=== PATIENT | female | born 1935 | race Asian ===

== ENCOUNTER 2017-07-03 17:09 | Emergency (ER) | payer SELFPAY, OTHER, MEDICARE | END 2017-07-03 18:53 | disposition left against medical advice (07) | LOC: E/R 17:09 | DX: Z53.21 Procedure and treatment not carried out due to patient leaving prior to being seen by health care provider (principal) ==

== ENCOUNTER 2017-07-03 20:05 | Inpatient (IN) | payer MEDICARE, OTHER, MEDICAID ==
[2017-07-03] MEDS: SOD CHLORIDE 0.9% 500 ML IV (20:36)
[2017-07-03] MEDS ORDERED: DEXTROSE 50% 50 ML SYRINGE (20:38)
[2017-07-03 20:42] LABS: ADD MAN DIFF? NO
[2017-07-03 20:44] LABS: BASOPHILS % 0.3 % (0.0-2.0); EOSINOPHILS # 0.1 10^3/ul (0.0-0.5); EOSINOPHILS % 0.5 % (0.0-7.0); HEMOGLOBIN 10.9 g/dl (12.0-16.0); LYMPHOCYTES # 3.3 10^3/ul (0.8-2.9); LYMPHOCYTES % 23.1 % (15.0-51.0); MEAN CORPUSCULAR HEMOGLOBIN 32.1 pg (29.0-33.0); MEAN CORPUSCULAR VOLUME 97.1 fl (82.0-101.0); MONOCYTE # 0.6 10^3/ul (0.3-0.9); MONOCYTES % 4.2 % (0.0-11.0); NEUTROPHIL # 10.1 10^3/ul (1.6-7.5); NEUTROPHILS % 70.7 % (39.0-77.0); PLATELET COUNT 306 10^3/UL (140-415); RED CELL DISTRIBUTION WIDTH 12.5 % (11.5-14.5)
[2017-07-03 20:44] LABS: WHITE BLOOD COUNT 14.3 10^3/ul (4.8-10.8)
[2017-07-03 21:02] LABS: PROTIME 18.4 Sec (11.9-14.9); PT RATIO 1.4
[2017-07-03 21:03] LABS: ANION GAP 18 (8-16); BLOOD UREA NITROGEN 24 mg/dl (7-20); CALCIUM 9.9 mg/dl (8.4-10.2); CARBON DIOXIDE 26 mmol/L (21-31); CHLORIDE 103 mmol/L (97-110); GLUCOSE 68 mg/dl (70-220); POTASSIUM 4.8 mmol/L (3.5-5.1); SODIUM 142 mmol/L (135-144)
[2017-07-03] MEDS: DEXTROSE 50% 50 ML SYRINGE IV (21:10)
[2017-07-03 21:16] LABS: B-TYPE NATRIURETIC PEPTIDE 713 PG/ML (0-450)
[2017-07-03 21:18] LABS: TROPONIN-I < 0.012 ng/ml (0.00-0.12)
[2017-07-03] MEDS ORDERED: ACETAMINOPHEN 325 MG TAB PO (22:30)
[2017-07-03] MEDS ORDERED: ONDANSETRON 4 MG INJ IV (22:30)
[2017-07-03 22:39] LABS: ALANINE AMINOTRANSFERASE 23 IU/L (13-69); ALBUMIN 4.1 g/dl (3.3-4.9); ALKALINE PHOSPHATASE 45 IU/L (42-121); ASPARTATE AMINO TRANSFERASE 26 IU/L (15-46); TOTAL PROTEIN 7.1 g/dl (6.1-8.1)
[2017-07-04] MEDS ORDERED: GLUCAGON 1 MG INJ IM (11:30)
[2017-07-04] MEDS ORDERED: GLUCOSE GEL 15 GRAM TUBE BUCCAL (11:30)
[2017-07-04] MEDS ORDERED: GLUCOSE GEL 15 GRAM TUBE PO ×2 (11:30)
[2017-07-04] MEDS ORDERED: DEXTROSE 50% 50 ML SYRINGE IV ×2 (11:30)
[2017-07-04 11:50] LABS: ADD MAN DIFF? NO
[2017-07-04] MEDS: INSULIN ASPART [NOVOLOG] 3 ML PEN SC ×3 (11:50→21:00)
[2017-07-04 11:52] LABS: BASOPHIL # 0.1 10^3/ul (0.0-0.1); BASOPHILS % 0.4 % (0.0-2.0); EOSINOPHILS # 0.1 10^3/ul (0.0-0.5); EOSINOPHILS % 0.9 % (0.0-7.0); HEMATOCRIT 32.8 % (37.0-47.0); HEMOGLOBIN 10.9 g/dl (12.0-16.0); LYMPHOCYTES # 4.2 10^3/ul (0.8-2.9); LYMPHOCYTES % 33.2 % (15.0-51.0); MEAN CORPUSCULAR HEMOGLOBIN 32.2 pg (29.0-33.0); MEAN CORPUSCULAR HGB CONC 33.2 g/dl (32.0-37.0); MEAN CORPUSCULAR VOLUME 96.8 fl (82.0-101.0); MEAN PLATELET VOLUME 10.4 fl (7.4-10.4); MONOCYTE # 0.6 10^3/ul (0.3-0.9); MONOCYTES % 4.4 % (0.0-11.0); NEUTROPHIL # 7.7 10^3/ul (1.6-7.5); NEUTROPHILS % 60.2 % (39.0-77.0); PLATELET COUNT 319 10^3/UL (140-415); RED BLOOD COUNT 3.39 10^6/ul (4.20-5.40); RED CELL DISTRIBUTION WIDTH 12.6 % (11.5-14.5)
[2017-07-04 11:52] LABS: WHITE BLOOD COUNT 12.8 10^3/ul (4.8-10.8)
[2017-07-04 12:20] LABS: ALANINE AMINOTRANSFERASE 25 IU/L (13-69); ALBUMIN 3.9 g/dl (3.3-4.9); ALKALINE PHOSPHATASE 42 IU/L (42-121); ANION GAP 15 (8-16); ASPARTATE AMINO TRANSFERASE 22 IU/L (15-46); BILIRUBIN,INDIRECT 0.3 mg/dl (0-1.1); BILIRUBIN,TOTAL 0.3 mg/dl (0.2-1.3); BLOOD UREA NITROGEN 16 mg/dl (7-20); CALCIUM 9.5 mg/dl (8.4-10.2); CARBON DIOXIDE 26 mmol/L (21-31); CHLORIDE 108 mmol/L (97-110); CHOL/HDL RATIO 2.5 RATIO; CHOLESTEROL 108 mg/dl (100-200); CREATININE 1.04 mg/dl (0.44-1.00); HDL CHOLESTEROL 42 mg/dl (33-92); LDL CHOLESTEROL,CALCULATED 36 mg/dl; LIPASE 201 U/L (23-300); POTASSIUM 4.4 mmol/L (3.5-5.1); SODIUM 145 mmol/L (135-144); TOTAL PROTEIN 6.9 g/dl (6.1-8.1); TRIGLYCERIDES 151 mg/dl (0-149)
[2017-07-04] MEDS: INFLUENZA VIRUS VACCINE 0.5 ML SYG IM* (13:34)
[2017-07-04 15:13] LABS: ADD UMIC YES; UR ASCORBIC ACID NEGATIVE (NEGATIVE); UR BILIRUBIN (Dip) NEGATIVE (NEGATIVE); UR BLOOD (Dip) NEGATIVE (NEGATIVE); UR CLARITY SLIGHTLY CLOUDY (CLEAR); UR COLOR YELLOW (YELLOW); UR GLUCOSE (Dip) NEGATIVE (NEGATIVE); UR KETONES (Dip) NEGATIVE (NEGATIVE); UR LEUKOCYTE ESTERASE (Dip) TRACE Leu/ul (NEGATIVE); UR NITRITE (Dip) NEGATIVE (NEGATIVE); UR RBC 2 /HPF (0-5); UR SPECIFIC GRAVITY (Dip) 1.011 (1.003-1.030); UR TOTAL PROTEIN (Dip) NEGATIVE (NEGATIVE); UR UROBILINOGEN (Dip) NEGATIVE (NEGATIVE); UR WBC 29 /HPF (0-5)
[2017-07-05] MEDS: INSULIN ASPART [NOVOLOG] 3 ML PEN SC ×4 (08:59→21:34)
[2017-07-05 09:27] LABS: ADD MAN DIFF? NO
[2017-07-05 09:34] LABS: BASOPHIL # 0.1 10^3/ul (0.0-0.1); BASOPHILS % 0.4 % (0.0-2.0); EOSINOPHILS # 0.1 10^3/ul (0.0-0.5); EOSINOPHILS % 1.1 % (0.0-7.0); LYMPHOCYTES # 3.3 10^3/ul (0.8-2.9); LYMPHOCYTES % 29.4 % (15.0-51.0); MEAN CORPUSCULAR HEMOGLOBIN 32.2 pg (29.0-33.0); MEAN CORPUSCULAR HGB CONC 33.3 g/dl (32.0-37.0); MEAN CORPUSCULAR VOLUME 96.5 fl (82.0-101.0); MONOCYTE # 0.7 10^3/ul (0.3-0.9); NEUTROPHILS % 62.5 % (39.0-77.0); PLATELET COUNT 302 10^3/UL (140-415); RED BLOOD COUNT 3.73 10^6/ul (4.20-5.40); RED CELL DISTRIBUTION WIDTH 12.4 % (11.5-14.5)
[2017-07-05 09:34] LABS: WHITE BLOOD COUNT 11.3 10^3/ul (4.8-10.8)
[2017-07-05 10:12] LABS: ANION GAP 17 (8-16); BLOOD UREA NITROGEN 18 mg/dl (7-20); CALCIUM 9.4 mg/dl (8.4-10.2); CARBON DIOXIDE 28 mmol/L (21-31); CHLORIDE 106 mmol/L (97-110); CREATININE 1.19 mg/dl (0.44-1.00); GLUCOSE 220 mg/dl (70-220); POTASSIUM 4.9 mmol/L (3.5-5.1); SODIUM 146 mmol/L (135-144)
[2017-07-06] MEDS: INSULIN ASPART [NOVOLOG] 3 ML PEN SC ×5 (07:55→20:15)
[2017-07-06] MEDS: ACETAMINOPHEN 325 MG TAB PO (12:58)
[2017-07-06 13:44] LABS: GLUCOSE 39 mg/dl (70-220)
[2017-07-06] MEDS: ENOXAPARIN 100 MG/ML SYG SC (20:15)
[2017-07-07 07:42] LABS: ADD MAN DIFF? NO
[2017-07-07 07:48] LABS: WHITE BLOOD COUNT 10.1 10^3/ul (4.8-10.8)
[2017-07-07 07:48] LABS: BASOPHIL # 0.1 10^3/ul (0.0-0.1); BASOPHILS % 0.6 % (0.0-2.0); EOSINOPHILS # 0.3 10^3/ul (0.0-0.5); EOSINOPHILS % 2.5 % (0.0-7.0); HEMOGLOBIN 11.2 g/dl (12.0-16.0); LYMPHOCYTES % 39.4 % (15.0-51.0); MEAN CORPUSCULAR HEMOGLOBIN 31.7 pg (29.0-33.0); MEAN CORPUSCULAR HGB CONC 33.9 g/dl (32.0-37.0); MEAN CORPUSCULAR VOLUME 93.5 fl (82.0-101.0); MEAN PLATELET VOLUME 11.4 fl (7.4-10.4); MONOCYTE # 0.8 10^3/ul (0.3-0.9); MONOCYTES % 7.5 % (0.0-11.0); NEUTROPHILS % 49.3 % (39.0-77.0); PLATELET COUNT 230 10^3/UL (140-415); RED BLOOD COUNT 3.53 10^6/ul (4.20-5.40); RED CELL DISTRIBUTION WIDTH 12.4 % (11.5-14.5)
[2017-07-07] MEDS: INSULIN ASPART [NOVOLOG] 3 ML PEN SC ×4 (07:48→19:48)
[2017-07-07 08:07] LABS: ALANINE AMINOTRANSFERASE 23 IU/L (13-69); ALBUMIN 3.7 g/dl (3.3-4.9); ALBUMIN/GLOBULIN RATIO 1.37; ALKALINE PHOSPHATASE 41 IU/L (42-121); ANION GAP 18 (8-16); ASPARTATE AMINO TRANSFERASE 20 IU/L (15-46); BILIRUBIN,INDIRECT 0.3 mg/dl (0-1.1); BILIRUBIN,TOTAL 0.3 mg/dl (0.2-1.3); BLOOD UREA NITROGEN 26 mg/dl (7-20); CALCIUM 9.3 mg/dl (8.4-10.2); CARBON DIOXIDE 26 mmol/L (21-31); CHLORIDE 105 mmol/L (97-110); CREATININE 1.08 mg/dl (0.44-1.00); GLUCOSE 178 mg/dl (70-220); POTASSIUM 4.6 mmol/L (3.5-5.1); SODIUM 144 mmol/L (135-144); TOTAL PROTEIN 6.4 g/dl (6.1-8.1)
[2017-07-07 08:22] LABS: FREE THYROXINE INDEX (Calc) 3.68 ug/ml (0.65-3.89); T3 UPTAKE 35.4 % (23.5-40.5); T4 (THYROXINE) 10.4 ug/dl (5.5-11.0)
[2017-07-07 09:28] LABS: EOSINOPHILS % (M) 2 % (0-7); GIANT THROMBO% (M) 1 % (0-0); LYMPHOCYTES #M 3.5 10^3/ul (0.8-2.9); LYMPHOCYTES % (M) 35 % (15-51); MONOCYTE #M 0.3 10^3/ul (0.3-0.9); MONOCYTES % (M) 3 % (0-11); MYELOCYTES #M 0.1 10^3/ul (0.0-0.0); MYELOCYTES % (M) 1 % (0-0); PLATELET ESTIMATE NORMAL; REACTIVE LYMPHOCYTES #M 0.4 10^3/ul (0.0-0.0); REACTIVE LYMPHOCYTES% (M) 4 % (0-0); SEGMENTED NEUTROPHILS (M) % 55 % (39-77); SMUDGE%M 6 % (0-0)
[2017-07-07] MEDS: metFORMIN 500 MG TAB PO (17:40)
[2017-07-07] MEDS: ENOXAPARIN 100 MG/ML SYG SC (19:51)
[2017-07-08] MEDS: metFORMIN 500 MG TAB PO ×2 (08:23→17:05)
[2017-07-08] MEDS: INSULIN ASPART [NOVOLOG] 3 ML PEN SC ×4 (08:32→20:29)
[2017-07-09 07:27] LABS: ADD MAN DIFF? NO
[2017-07-09 07:34] LABS: WHITE BLOOD COUNT 8.7 10^3/ul (4.8-10.8)
[2017-07-09 07:34] LABS: BASOPHIL # 0.1 10^3/ul (0.0-0.1); BASOPHILS % 0.8 % (0.0-2.0); EOSINOPHILS # 0.2 10^3/ul (0.0-0.5); EOSINOPHILS % 2.2 % (0.0-7.0); HEMOGLOBIN 10.8 g/dl (12.0-16.0); LYMPHOCYTES # 3.3 10^3/ul (0.8-2.9); LYMPHOCYTES % 38.3 % (15.0-51.0); MEAN CORPUSCULAR HGB CONC 33.8 g/dl (32.0-37.0); MEAN PLATELET VOLUME 11.2 fl (7.4-10.4); MONOCYTE # 0.7 10^3/ul (0.3-0.9); MONOCYTES % 7.9 % (0.0-11.0); NEUTROPHIL # 4.4 10^3/ul (1.6-7.5); NEUTROPHILS % 50.2 % (39.0-77.0); PLATELET COUNT 199 10^3/UL (140-415); RED BLOOD COUNT 3.37 10^6/ul (4.20-5.40); RED CELL DISTRIBUTION WIDTH 12.8 % (11.5-14.5)
[2017-07-09] MEDS: metFORMIN 500 MG TAB PO ×3 (07:55→12:39)
[2017-07-09 07:59] LABS: IRON 111 ug/dl (35-150)
[2017-07-09 08:08] LABS: % IRON SATURATION 43 % SAT (22-52); TOTAL IRON BINDING CAPACITY 256 ug/dl (241-421)
[2017-07-09] MEDS: INSULIN ASPART [NOVOLOG] 3 ML PEN SC ×4 (08:55→20:45)
[2017-07-09] MEDS ORDERED: LIDOCAINE 1% (MDV) 20 ML INJ (10:48)
[2017-07-09] MEDS ORDERED: MIDAZOLAM 1 MG/ML 2 ML INJ (10:48)
[2017-07-09] MEDS ORDERED: IODIXANOL LOCM 50 ML BTL (10:48)
[2017-07-09] MEDS ORDERED: FENTAnyl 50 MCG/ML VIAL (10:48)
[2017-07-09] MEDS ORDERED: POLYMYXIN/BACITRACIN 1L IRRIG (11:04)
[2017-07-09] MEDS: VANCOMYCIN 1 GM 250 ML IVPB (12:44)
[2017-07-09] MEDS: ACETAMINOPHEN 325 MG TAB PO (18:21)
[2017-07-09] MEDS: LORAZEPAM 2 MG INJ IV (18:34)
[2017-07-09] MEDS ORDERED: LEVOFLOXACIN 500MG/D5W (PMX) 100 ML IVPB (20:00)
[2017-07-09] MEDS: DIPHENHYDRAMINE 50 MG INJ IV (20:39)
[2017-07-09] MEDS: LEVOFLOXACIN 500MG/D5W (PMX) 100 ML IVPB (20:45)
[2017-07-09] MEDS: VANCOMYCIN 1 GM (PMX) 250 ML IVPB (22:11)
[2017-07-10] MEDS: LORAZEPAM 2 MG INJ IV (00:27)
[2017-07-10 02:12] LABS: ADD UMIC YES; UR ASCORBIC ACID NEGATIVE (NEGATIVE); UR BACTERIA FEW /HPF (NONE SEEN); UR BILIRUBIN (Dip) NEGATIVE (NEGATIVE); UR BLOOD (Dip) 2+ mg/dL (NEGATIVE); UR CLARITY SLIGHTLY CLOUDY (CLEAR); UR COLOR YELLOW (YELLOW); UR GLUCOSE (Dip) NEGATIVE (NEGATIVE); UR KETONES (Dip) NEGATIVE (NEGATIVE); UR LEUKOCYTE ESTERASE (Dip) TRACE Leu/ul (NEGATIVE); UR NITRITE (Dip) NEGATIVE (NEGATIVE); UR RBC 0 /HPF (0-5); UR SPECIFIC GRAVITY (Dip) 1.023 (1.003-1.030); UR SQUAMOUS EPITHELIAL CELL FEW /HPF (FEW); UR TOTAL PROTEIN (Dip) NEGATIVE (NEGATIVE); UR UROBILINOGEN (Dip) NEGATIVE (NEGATIVE); UR WBC 7 /HPF (0-5)
[2017-07-10] MEDS: ACETAMINOPHEN 325 MG TAB PO ×4 (04:42→19:06)
[2017-07-10 07:46] LABS: ADD MAN DIFF? NO
[2017-07-10 07:51] LABS: WHITE BLOOD COUNT 18.9 10^3/ul (4.8-10.8)
[2017-07-10 07:51] LABS: BASOPHILS % 0.1 % (0.0-2.0); EOSINOPHILS # 0.1 10^3/ul (0.0-0.5); EOSINOPHILS % 0.7 % (0.0-7.0); HEMOGLOBIN 12.6 g/dl (12.0-16.0); LYMPHOCYTES % 5.4 % (15.0-51.0); MEAN CORPUSCULAR HEMOGLOBIN 32.1 pg (29.0-33.0); MEAN CORPUSCULAR HGB CONC 34.1 g/dl (32.0-37.0); MEAN CORPUSCULAR VOLUME 94.4 fl (82.0-101.0); MEAN PLATELET VOLUME 11.4 fl (7.4-10.4); MONOCYTE # 0.4 10^3/ul (0.3-0.9); NEUTROPHIL # 17.2 10^3/ul (1.6-7.5); NEUTROPHILS % 91.2 % (39.0-77.0); PLATELET COUNT 205 10^3/UL (140-415); RED BLOOD COUNT 3.92 10^6/ul (4.20-5.40); RED CELL DISTRIBUTION WIDTH 12.7 % (11.5-14.5)
[2017-07-10 08:16] LABS: ALANINE AMINOTRANSFERASE 30 IU/L (13-69); ALBUMIN 3.7 g/dl (3.3-4.9); ALBUMIN/GLOBULIN RATIO 1.32; ALKALINE PHOSPHATASE 45 IU/L (42-121); ANION GAP 18 (8-16); ASPARTATE AMINO TRANSFERASE 21 IU/L (15-46); BILIRUBIN,INDIRECT 0.9 mg/dl (0-1.1); BILIRUBIN,TOTAL 0.9 mg/dl (0.2-1.3); BLOOD UREA NITROGEN 21 mg/dl (7-20); CALCIUM 8.6 mg/dl (8.4-10.2); CARBON DIOXIDE 22 mmol/L (21-31); CHLORIDE 106 mmol/L (97-110); CREATININE 1.17 mg/dl (0.44-1.00); GLUCOSE 240 mg/dl (70-220); POTASSIUM 4.5 mmol/L (3.5-5.1); SODIUM 141 mmol/L (135-144); TOTAL PROTEIN 6.5 g/dl (6.1-8.1)
[2017-07-10] MEDS: INSULIN ASPART [NOVOLOG] 3 ML PEN SC ×4 (08:34→20:16)
[2017-07-10] MEDS ORDERED: VANCOMYCIN IV PER PHARMACY XX (12:30)
[2017-07-10] MEDS: MAGNESIUM HYDROXIDE 30ML CUP PO (17:39)
[2017-07-10] MEDS: POTASSIUM CHLORIDE 10 MEQ in SOD CHLORIDE 0.45% 1,000 ML IV (17:39)
[2017-07-10] MEDS: LEVOFLOXACIN 250MG/D5W (PMX) 50 ML IVPB (20:13)
[2017-07-10] MEDS ORDERED: VANCOMYCIN 1 GM 250 ML IVPB (22:00)
[2017-07-10] MEDS: VANCOMYCIN 750 MG in DEXTROSE 5% 150 ML IVPB (23:15)
[2017-07-11] MEDS: ACETAMINOPHEN 325 MG TAB PO ×5 (01:25→22:20)
[2017-07-11] MEDS: LORAZEPAM 2 MG INJ IV (06:22)
[2017-07-11] MEDS: INSULIN ASPART [NOVOLOG] 3 ML PEN SC ×4 (08:29→21:07)
[2017-07-11 10:35] LABS: ADD MAN DIFF? NO
[2017-07-11 10:37] LABS: WHITE BLOOD COUNT 24.1 10^3/ul (4.8-10.8)
[2017-07-11 10:37] LABS: ABNORMAL IP MESSAGE 1; BASOPHILS % 0.1 % (0.0-2.0); EOSINOPHILS # 0.5 10^3/ul (0.0-0.5); EOSINOPHILS % 2.2 % (0.0-7.0); HEMATOCRIT 38.6 % (37.0-47.0); HEMOGLOBIN 13.2 g/dl (12.0-16.0); LYMPHOCYTES # 2.2 10^3/ul (0.8-2.9); LYMPHOCYTES % 9.3 % (15.0-51.0); MEAN CORPUSCULAR HGB CONC 34.2 g/dl (32.0-37.0); MEAN CORPUSCULAR VOLUME 93.7 fl (82.0-101.0); MEAN PLATELET VOLUME 11.2 fl (7.4-10.4); MONOCYTE # 0.8 10^3/ul (0.3-0.9); MONOCYTES % 3.4 % (0.0-11.0); NEUTROPHIL # 20.2 10^3/ul (1.6-7.5); NEUTROPHILS % 84.2 % (39.0-77.0); PLATELET COUNT 153 10^3/UL (140-415); RED BLOOD COUNT 4.12 10^6/ul (4.20-5.40); RED CELL DISTRIBUTION WIDTH 12.9 % (11.5-14.5)
[2017-07-11 10:45] LABS: POSITIVE DIFF @See below
[2017-07-11 11:01] LABS: BLOOD UREA NITROGEN 24 mg/dl (7-20)
[2017-07-11 11:01] LABS: CREATININE 1.29 mg/dl (0.44-1.00)
[2017-07-11] MEDS ORDERED: VITAMIN A & D 5 GM OINT PACKET TOP (12:52)
[2017-07-11] MEDS: LINEZOLID 600 MG/D5W (PMX) 300 ML IVPB ×2 (12:55→22:19)
[2017-07-11] MEDS: MEROPENEM 1 GM/50ML(PMX) 50 ML IVPB (14:07)
[2017-07-11] MEDS: metFORMIN 500 MG TAB PO ×2 (17:29→17:55)
[2017-07-11] MEDS: GENTAMICIN IN NACL, ISO-OSM 50 ML IVPB (17:50)
[2017-07-11] MEDS: DIPHENHYDRAMINE 50 MG INJ IV (20:30)
[2017-07-11] MEDS ORDERED: GENTAMICIN XX (21:00)
[2017-07-11] MEDS: METHYLPREDNISOLONE 125 MG INJ IV (22:20)
[2017-07-11] MEDS: FOSFOMYCIN 3 GM PACKET PO (22:20)
[2017-07-12] MEDS: INSULIN ASPART [NOVOLOG] 3 ML PEN SC ×5 (02:54→20:59)
[2017-07-12 06:16] LABS: ADD MAN DIFF? NO
[2017-07-12 06:43] LABS: WHITE BLOOD COUNT 16.4 10^3/ul (4.8-10.8)
[2017-07-12 06:43] LABS: BASOPHILS % 0.1 % (0.0-2.0); EOSINOPHILS # 0.1 10^3/ul (0.0-0.5); EOSINOPHILS % 0.5 % (0.0-7.0); HEMATOCRIT 31.4 % (37.0-47.0); LYMPHOCYTES # 1.6 10^3/ul (0.8-2.9); LYMPHOCYTES % 9.5 % (15.0-51.0); MEAN CORPUSCULAR HEMOGLOBIN 32.8 pg (29.0-33.0); MEAN CORPUSCULAR VOLUME 93.7 fl (82.0-101.0); MEAN PLATELET VOLUME 11.8 fl (7.4-10.4); MONOCYTE # 0.3 10^3/ul (0.3-0.9); MONOCYTES % 1.8 % (0.0-11.0); NEUTROPHIL # 14.3 10^3/ul (1.6-7.5); NEUTROPHILS % 87.4 % (39.0-77.0); PLATELET COUNT 121 10^3/UL (140-415); RED BLOOD COUNT 3.35 10^6/ul (4.20-5.40); RED CELL DISTRIBUTION WIDTH 12.6 % (11.5-14.5)
[2017-07-12 07:06] LABS: ALANINE AMINOTRANSFERASE 24 IU/L (13-69); ALBUMIN 3.8 g/dl (3.3-4.9); ALBUMIN/GLOBULIN RATIO 1.58; ALKALINE PHOSPHATASE 41 IU/L (42-121); ANION GAP 22 (8-16); ASPARTATE AMINO TRANSFERASE 13 IU/L (15-46); BILIRUBIN,INDIRECT 0.4 mg/dl (0-1.1); BILIRUBIN,TOTAL 0.4 mg/dl (0.2-1.3); BLOOD UREA NITROGEN 21 mg/dl (7-20); CALCIUM 8.4 mg/dl (8.4-10.2); CARBON DIOXIDE 21 mmol/L (21-31); CHLORIDE 102 mmol/L (97-110); CREATININE 1.17 mg/dl (0.44-1.00); GLUCOSE 367 mg/dl (70-220); POTASSIUM 4.5 mmol/L (3.5-5.1); SODIUM 140 mmol/L (135-144); TOTAL PROTEIN 6.2 g/dl (6.1-8.1)
[2017-07-12] MEDS: LINEZOLID 600 MG/D5W (PMX) 300 ML IVPB (09:57)
[2017-07-12] MEDS: METHYLPREDNISOLONE 125 MG INJ IV ×2 (09:58→21:03)
[2017-07-12] MEDS: metFORMIN 500 MG TAB PO ×2 (09:58→19:00)
[2017-07-12] MEDS: ACETAMINOPHEN 325 MG TAB PO (09:58)
[2017-07-12] MEDS: ZYVOX 600 MG TAB PO ×2 (13:30→21:03)
[2017-07-12] MEDS ORDERED: GENTAMICIN 60 MG in SOD CHLORIDE 0.9% 50 ML IVPB (18:00)
[2017-07-12] MEDS ORDERED: SPECIAL NON-STANDARD MEDICATION IM (18:00)
[2017-07-12] MEDS: GENTAMICIN 80 MG INJ IM (19:01)
[2017-07-13] MEDS: INSULIN ASPART [NOVOLOG] 3 ML PEN SC ×5 (02:43→21:45)
[2017-07-13 07:45] LABS: ADD MAN DIFF? NO
[2017-07-13 07:57] LABS: WHITE BLOOD COUNT 20.5 10^3/ul (4.8-10.8)
[2017-07-13 07:57] LABS: BASOPHILS % 0.1 % (0.0-2.0); EOSINOPHILS # 0.1 10^3/ul (0.0-0.5); EOSINOPHILS % 0.6 % (0.0-7.0); HEMATOCRIT 29.2 % (37.0-47.0); HEMOGLOBIN 9.6 g/dl (12.0-16.0); LYMPHOCYTES # 2.1 10^3/ul (0.8-2.9); LYMPHOCYTES % 10.2 % (15.0-51.0); MEAN CORPUSCULAR HEMOGLOBIN 31.7 pg (29.0-33.0); MEAN CORPUSCULAR HGB CONC 32.9 g/dl (32.0-37.0); MEAN CORPUSCULAR VOLUME 96.4 fl (82.0-101.0); MEAN PLATELET VOLUME 11.9 fl (7.4-10.4); MONOCYTE # 0.7 10^3/ul (0.3-0.9); MONOCYTES % 3.5 % (0.0-11.0); NEUTROPHIL # 17.4 10^3/ul (1.6-7.5); NEUTROPHILS % 84.8 % (39.0-77.0); PLATELET COUNT 128 10^3/UL (140-415); RED BLOOD COUNT 3.03 10^6/ul (4.20-5.40); RED CELL DISTRIBUTION WIDTH 13.1 % (11.5-14.5)
[2017-07-13 08:13] LABS: ALANINE AMINOTRANSFERASE 26 IU/L (13-69); ALBUMIN 3.3 g/dl (3.3-4.9); ALBUMIN/GLOBULIN RATIO 1.17; ALKALINE PHOSPHATASE 37 IU/L (42-121); ANION GAP 19 (8-16); ASPARTATE AMINO TRANSFERASE 19 IU/L (15-46); BILIRUBIN,INDIRECT 0.3 mg/dl (0-1.1); BILIRUBIN,TOTAL 0.3 mg/dl (0.2-1.3); BLOOD UREA NITROGEN 31 mg/dl (7-20); CALCIUM 8.3 mg/dl (8.4-10.2); CARBON DIOXIDE 20 mmol/L (21-31); CHLORIDE 107 mmol/L (97-110); CREATININE 0.99 mg/dl (0.44-1.00); GLUCOSE 277 mg/dl (70-220); POTASSIUM 4.5 mmol/L (3.5-5.1); SODIUM 141 mmol/L (135-144); TOTAL PROTEIN 6.1 g/dl (6.1-8.1)
[2017-07-13] MEDS: ACETAMINOPHEN 325 MG TAB PO (08:24)
[2017-07-13] MEDS: metFORMIN 500 MG TAB PO ×2 (08:24→16:51)
[2017-07-13] MEDS: ZYVOX 600 MG TAB PO ×2 (08:24→21:35)
[2017-07-13] MEDS: DIPHENHYDRAMINE 50 MG INJ IV ×2 (08:31→16:51)
[2017-07-13] MEDS: LINAGLIPTIN 5 MG TABLET PO (13:02)
[2017-07-13] MEDS: LORAZEPAM 2 MG INJ IV (13:15)
[2017-07-13] MEDS: INSULIN GLARGINE [LANtus] 3 ML PEN SC (13:24)
[2017-07-13] MEDS: LORATADINE 10 MG TAB PO (16:50)
[2017-07-13] MEDS: GENTAMICIN 80 MG INJ IM (21:36)
[2017-07-13] MEDS: DIPHENHYDRAMINE 25 MG CAP PO (22:28)
[2017-07-13] MEDS: LORAZEPAM 0.5 MG TAB PO (22:28)
[2017-07-14] MEDS: LORAZEPAM 0.5 MG TAB PO (05:35)
[2017-07-14] MEDS: LINAGLIPTIN 5 MG TABLET PO (08:18)
[2017-07-14] MEDS: ZYVOX 600 MG TAB PO ×2 (08:18→20:34)
[2017-07-14] MEDS: metFORMIN 500 MG TAB PO ×2 (08:18→17:40)
[2017-07-14] MEDS: LORATADINE 10 MG TAB PO (08:18)
[2017-07-14] MEDS: INSULIN GLARGINE [LANtus] 3 ML PEN SC (08:23)
[2017-07-14] MEDS: INSULIN ASPART [NOVOLOG] 3 ML PEN SC ×4 (08:24→20:34)
[2017-07-14 09:20] LABS: ADD MAN DIFF? NO
[2017-07-14 09:28] LABS: WHITE BLOOD COUNT 20.6 10^3/ul (4.8-10.8)
[2017-07-14 09:28] LABS: ABNORMAL IP MESSAGE 1; BASOPHILS % 0.2 % (0.0-2.0); EOSINOPHILS # 1.7 10^3/ul (0.0-0.5); EOSINOPHILS % 8.4 % (0.0-7.0); HEMATOCRIT 29.9 % (37.0-47.0); HEMOGLOBIN 10.1 g/dl (12.0-16.0); LYMPHOCYTES % 29.2 % (15.0-51.0); MEAN CORPUSCULAR HEMOGLOBIN 32.1 pg (29.0-33.0); MEAN CORPUSCULAR HGB CONC 33.8 g/dl (32.0-37.0); MEAN CORPUSCULAR VOLUME 94.9 fl (82.0-101.0); MEAN PLATELET VOLUME 11.7 fl (7.4-10.4); MONOCYTE # 1.2 10^3/ul (0.3-0.9); MONOCYTES % 5.9 % (0.0-11.0); NEUTROPHIL # 11.4 10^3/ul (1.6-7.5); NEUTROPHILS % 55.6 % (39.0-77.0); PLATELET COUNT 163 10^3/UL (140-415); RED BLOOD COUNT 3.15 10^6/ul (4.20-5.40); RED CELL DISTRIBUTION WIDTH 13.4 % (11.5-14.5)
[2017-07-14 09:44] LABS: POSITIVE DIFF @See below
[2017-07-14 09:53] LABS: ANION GAP 18 (8-16); BLOOD UREA NITROGEN 35 mg/dl (7-20); CALCIUM 8.9 mg/dl (8.4-10.2); CARBON DIOXIDE 25 mmol/L (21-31); CHLORIDE 104 mmol/L (97-110); CREATININE 1.21 mg/dl (0.44-1.00); GLUCOSE 204 mg/dl (70-220); POTASSIUM 3.8 mmol/L (3.5-5.1); SODIUM 143 mmol/L (135-144)
[2017-07-14] MEDS: DIPHENHYDRAMINE 50 MG INJ IV (21:27)
[2017-07-14] MEDS: HALOPERIDOL 1 MG TAB PO (22:30)
[2017-07-15] MEDS: DIPHENHYDRAMINE 50 MG INJ IV (06:32)
[2017-07-15 07:33] LABS: ADD MAN DIFF? NO
[2017-07-15 07:48] LABS: ABNORMAL IP MESSAGE 1; BASOPHILS % 0.3 % (0.0-2.0); EOSINOPHILS # 1.9 10^3/ul (0.0-0.5); EOSINOPHILS % 13.3 % (0.0-7.0); HEMATOCRIT 29.3 % (37.0-47.0); HEMOGLOBIN 9.9 g/dl (12.0-16.0); LYMPHOCYTES # 6.4 10^3/ul (0.8-2.9); LYMPHOCYTES % 44.5 % (15.0-51.0); MEAN CORPUSCULAR HEMOGLOBIN 31.7 pg (29.0-33.0); MEAN CORPUSCULAR HGB CONC 33.8 g/dl (32.0-37.0); MEAN CORPUSCULAR VOLUME 93.9 fl (82.0-101.0); MEAN PLATELET VOLUME 10.9 fl (7.4-10.4); MONOCYTE # 1.2 10^3/ul (0.3-0.9); MONOCYTES % 8.2 % (0.0-11.0); NEUTROPHIL # 4.7 10^3/ul (1.6-7.5); NEUTROPHILS % 32.7 % (39.0-77.0); PLATELET COUNT 171 10^3/UL (140-415); RED BLOOD COUNT 3.12 10^6/ul (4.20-5.40); RED CELL DISTRIBUTION WIDTH 13.3 % (11.5-14.5)
[2017-07-15 07:48] LABS: WHITE BLOOD COUNT 14.5 10^3/ul (4.8-10.8)
[2017-07-15 07:50] LABS: POSITIVE DIFF @See below
[2017-07-15 08:02] LABS: ANION GAP 17 (8-16); BLOOD UREA NITROGEN 23 mg/dl (7-20); CALCIUM 8.7 mg/dl (8.4-10.2); CARBON DIOXIDE 23 mmol/L (21-31); CHLORIDE 109 mmol/L (97-110); CREATININE 1.04 mg/dl (0.44-1.00); GLUCOSE 140 mg/dl (70-220); POTASSIUM 3.7 mmol/L (3.5-5.1); SODIUM 145 mmol/L (135-144)
[2017-07-15] MEDS: ZYVOX 600 MG TAB PO ×2 (08:10→20:10)
[2017-07-15] MEDS: metFORMIN 500 MG TAB PO ×2 (08:10→18:13)
[2017-07-15] MEDS: DIPHENHYDRAMINE 25 MG CAP PO ×2 (08:10→20:09)
[2017-07-15] MEDS: LORATADINE 10 MG TAB PO (08:10)
[2017-07-15] MEDS: LINAGLIPTIN 5 MG TABLET PO (08:10)
[2017-07-15] MEDS: INSULIN ASPART [NOVOLOG] 3 ML PEN SC ×4 (08:25→20:11)
[2017-07-15] MEDS: INSULIN GLARGINE [LANtus] 3 ML PEN SC (08:26)
[2017-07-15] MEDS: AMLODIPINE 2.5 MG TAB PO (15:43)
[2017-07-15] MEDS: HALOPERIDOL 1 MG TAB PO (18:14)
[2017-07-15] MEDS: LORAZEPAM 0.5 MG TAB PO (21:42)
[2017-07-15] MEDS: ACETAMINOPHEN 325 MG TAB PO (21:54)
[2017-07-16] MEDS: DIPHENHYDRAMINE 25 MG CAP PO ×2 (03:09→20:03)
[2017-07-16 07:52] LABS: ABNORMAL IP MESSAGE 1; HEMATOCRIT 31.7 % (37.0-47.0); HEMOGLOBIN 10.8 g/dl (12.0-16.0); MEAN CORPUSCULAR HGB CONC 34.1 g/dl (32.0-37.0); MEAN CORPUSCULAR VOLUME 94.1 fl (82.0-101.0); MEAN PLATELET VOLUME 10.6 fl (7.4-10.4); PLATELET COUNT 171 10^3/UL (140-415); RED BLOOD COUNT 3.37 10^6/ul (4.20-5.40); RED CELL DISTRIBUTION WIDTH 13.2 % (11.5-14.5)
[2017-07-16 08:01] LABS: ADD MAN DIFF? YES; POSITIVE DIFF @See below
[2017-07-16] MEDS: LORATADINE 10 MG TAB PO (08:02)
[2017-07-16] MEDS: metFORMIN 500 MG TAB PO ×2 (08:02→17:38)
[2017-07-16] MEDS: LINAGLIPTIN 5 MG TABLET PO (08:03)
[2017-07-16] MEDS: ZYVOX 600 MG TAB PO ×2 (08:03→20:01)
[2017-07-16] MEDS: AMLODIPINE 2.5 MG TAB PO (08:13)
[2017-07-16] MEDS: INSULIN ASPART [NOVOLOG] 3 ML PEN SC ×4 (08:15→20:01)
[2017-07-16] MEDS: INSULIN GLARGINE [LANtus] 3 ML PEN SC (08:16)
[2017-07-16 09:42] LABS: BAND NEUTROPHILS #M 0.1 10^3/ul (0.0-0.6); BAND NEUTROPHILS % (M) 1 % (0-4); EOSINOPHILS % (M) 11 % (0-7); GIANT THROMBO% (M) 1 % (0-0); LYMPHOCYTES #M 3.3 10^3/ul (0.8-2.9); LYMPHOCYTES % (M) 26 % (15-51); METAMYELOCYTES #M 0.2 10^3/ul (0.0-0.0); METAMYELOCYTES %M 2 % (0-0); MONOCYTE #M 0.5 10^3/ul (0.3-0.9); MONOCYTES % (M) 4 % (0-11); MYELOCYTES #M 0.1 10^3/ul (0.0-0.0); MYELOCYTES % (M) 1 % (0-0); PLATELET ESTIMATE NORMAL; POLYCHROMASIA 1+ (0-0); REACTIVE LYMPHOCYTES #M 0.7 10^3/ul (0.0-0.0); REACTIVE LYMPHOCYTES% (M) 6 % (0-0); SEG NEUT #M 6.4 10^3/ul (1.6-7.5); SEGMENTED NEUTROPHILS (M) % 49 % (39-77); SMUDGE%M 18 % (0-0)
[2017-07-16 09:54] LABS: ERYTHROCYTE SEDIMENTATION RATE 18 mm/Hr (0-30)
[2017-07-16] MEDS: LISINOPRIL 5 MG TAB PO (14:21)
[2017-07-16] MEDS: HALOPERIDOL 1 MG TAB PO (19:24)
[2017-07-16] MEDS: ACETAMINOPHEN 325 MG TAB PO (19:33)
[2017-07-16] MEDS: MAGNESIUM HYDROXIDE 30ML CUP PO (20:08)
[2017-07-16] MEDS: LORAZEPAM 2 MG INJ IV (22:22)
[2017-07-17] MEDS: DIPHENHYDRAMINE 25 MG CAP PO (05:24)
[2017-07-17] MEDS: ACETAMINOPHEN 325 MG TAB PO (05:24)
[2017-07-17 07:43] LABS: ABNORMAL IP MESSAGE 1; HEMATOCRIT 33.3 % (37.0-47.0); HEMOGLOBIN 11.4 g/dl (12.0-16.0); MEAN CORPUSCULAR HEMOGLOBIN 32.3 pg (29.0-33.0); MEAN CORPUSCULAR HGB CONC 34.2 g/dl (32.0-37.0); MEAN CORPUSCULAR VOLUME 94.3 fl (82.0-101.0); MEAN PLATELET VOLUME 10.3 fl (7.4-10.4); PLATELET COUNT 185 10^3/UL (140-415); RED BLOOD COUNT 3.53 10^6/ul (4.20-5.40); RED CELL DISTRIBUTION WIDTH 12.7 % (11.5-14.5)
[2017-07-17 07:43] LABS: WHITE BLOOD COUNT 15.9 10^3/ul (4.8-10.8)
[2017-07-17 07:47] LABS: POSITIVE DIFF @See below
[2017-07-17 07:52] LABS: ADD MAN DIFF? YES
[2017-07-17] MEDS: LORATADINE 10 MG TAB PO (07:59)
[2017-07-17] MEDS: LINAGLIPTIN 5 MG TABLET PO (07:59)
[2017-07-17] MEDS: metFORMIN 500 MG TAB PO (08:00)
[2017-07-17] MEDS: LISINOPRIL 5 MG TAB PO (08:01)
[2017-07-17] MEDS: INSULIN ASPART [NOVOLOG] 3 ML PEN SC ×2 (08:04→11:50)
[2017-07-17 09:41] LABS: EOSINOPHILS % (M) 9 % (0-7); LYMPHOCYTES #M 5.8 10^3/ul (0.8-2.9); LYMPHOCYTES % (M) 37 % (15-51); MONOCYTE #M 0.3 10^3/ul (0.3-0.9); MONOCYTES % (M) 2 % (0-11); PLATELET ESTIMATE NORMAL; POLYCHROMASIA 1+ (0-0); REACTIVE LYMPHOCYTES #M 0.1 10^3/ul (0.0-0.0); REACTIVE LYMPHOCYTES% (M) 1 % (0-0); SEGMENTED NEUTROPHILS (M) % 51 % (39-77)
== END 2017-07-17 16:20 | disposition home or self-care (01) | DRG 242 ==
LOC: TEL 22:18 → E/R 20:05 → TEL 07-08 22:35
PROC: 0JH606Z Insertion of Pacemaker, Dual Chamber into Chest Subcutaneous Tissue and Fascia, Open Approach (ICD-10-PCS; principal; 2017-07-09 10:30)
PROC: 02H63JZ Insertion of Pacemaker Lead into Right Atrium, Percutaneous Approach (ICD-10-PCS; 2017-07-09 10:30)
PROC: 02HK3JZ Insertion of Pacemaker Lead into Right Ventricle, Percutaneous Approach (ICD-10-PCS; 2017-07-09 10:30)
DX: I49.5 Sick sinus syndrome (principal); G93.41 Metabolic encephalopathy; A41.9 Sepsis, unspecified organism; I95.9 Hypotension, unspecified; E11.649 Type 2 diabetes mellitus with hypoglycemia without coma; C85.90 Non-Hodgkin lymphoma, unspecified, unspecified site; I48.92 Unspecified atrial flutter; F03.90 Unspecified dementia, unspecified severity, without behavioral disturbance, psychotic disturbance, mood disturbance, and anxiety; N39.0 Urinary tract infection, site not specified; R00.1 Bradycardia, unspecified; R55 Syncope and collapse; E78.5 Hyperlipidemia, unspecified; F29 Unspecified psychosis not due to a substance or known physiological condition; F32.9 Major depressive disorder, single episode, unspecified; I10 Essential (primary) hypertension; I48.0 Paroxysmal atrial fibrillation; K21.9 Gastro-esophageal reflux disease without esophagitis; L27.1 Localized skin eruption due to drugs and medicaments taken internally; T36.1X5A Adverse effect of cephalosporins and other beta-lactam antibiotics, initial encounter; T36.8X5A Adverse effect of other systemic antibiotics, initial encounter; R19.7 Diarrhea, unspecified; Z88.1 Allergy status to other antibiotic agents; Z79.4 Long term (current) use of insulin
CPT/HCPCS: 36415; 71045; 80048; 80053; 80061; 80076; 81001; 82565; 82962; 83036; 83540; 83690; 83880; 84436; 84443; 84479; 84484; 84520; 85025; 85610; 85651; 87040; 87075; 87081; 87086; 90686; 93005; 93306; 96374; 97110; 97116; 97161; 97530; 99291-25